=== PATIENT | male | born 1980 | race Caucasian/White ===

== ENCOUNTER 2018-05-01 00:04 | Emergency (ER) | payer MEDICAID, SELFPAY ==
[2018-05-01 00:06] VITALS: BP 109/77; PULSE 69; RESP 16; TEMP 36.6; O2SAT 98; BMI 22.8
--- NOTE | 2018-05-01 01:01 | ED.DCSUM_ITS ---
- ER Visit Summary Date of Service: 05/01/18 Chief Complaint: Right upper thigh lump History of Present Illness: The patient is a 38 M who presents with a lump at his right upper thigh. He noticed it earlier today but it seems to enlarge in size since that time. It is tender. No history of prior similar symptoms. Physical Examination: Afebrile vitals normal Moist mucous membranes Heart regular rate Respiratory distress There is a palpable mobile nodule in the right upper medial thigh distal to the groin no overlying erythema no fluctuance Test Results: Dcqjc-ki-rowh bedside soft tissue ultrasound shows a cystic structure that appears to be consistent with an enlarged lymph node. This is separate from the vasculature. Vessels are compressible. Emergency Department Course and Treatment: Ultrasound is most consistent with an enlarged lymph node. Patient was advised on supportive care such as anti- inflammatories. He was advised to follow-up with her primary care physician for further evaluation and formal ultrasound for further evaluation. Family states they will make an appointment with [facility] physicians. Patient discharged. Treatment Plan: [] Disposition: Discharge Impression: Enlarged lymph nodes/lymphadenopathy This note was generated with [employer] dictation software. It may contain incorrect words, spelling, and punctuation that were not noted in review of the chart prior to signing ED Disposition - Plan for ED Patient: Chief Complaint: Wound Referrals: Care Physician,No Primary [Primary Care Provider] -
--- NOTE | 2018-05-01 01:01 | ED.DEP ---
ED Disposition - Plan for ED Patient: Chief Complaint: Wound Referrals: Care Physician,No Primary [Primary Care Provider] - Additional Instructions: You were seen for a lump at your right thigh which appears to be an enlarged lymph node. Use Tylenol or ibuprofen for pain. Follow-up as an outpatient. Return for new or worsening symptoms.
[2018-05-01 01:13] VITALS: RESP 18
--- OUTSIDE RECORDS SUMMARY | 2018-06-26 00:25 | XMS RPT_ITS ---
:1980 Author Organization [facility] Care Team Providers Name Role Phone Jesus Kyle Attending Unavailable Jewel Garibay Referring Unavailable Jewel Garibay Primary Care Unavailable Lisandro Armando Attending Unavailable Primay Care Physicia, No Primary Care Unavailable PROBLEMS PROBLEMS DATE TYPE CONDITION / CODE ATTENDING STATUS SOURCE 05/04/2018 Active Other NA Active [facility] intra-abdominal Other [place] and pelvic Repository swelling, mass and lump / R19.09(ICD-10) PROCEDURES PROCEDURES No Procedure Records FoundRESULTS RESULTS ED PROV NOTE Observed: 05/04/2018 Status: COMPLETED Source: [place] 8:18 PM CLINIC OTHER CAMPUS REPOSITORY HNO ID: [id number] Author: George Yip (Pa) Service: (none) Author Type: Physician Building Trades Instructor Type: ED Provider Notes Filed: 05/06/2018 1:04 PM Note Text: ED Provider Note Patient Name: Bandar Bolton SERVICE DATE: 05/04/18 History Patient presents with: Abscess 38-year-old male presents emergency Department with complaints of tenderness and pain to his right thigh and groin. Suspects it may be an abscess. States there is slight erythema in the area but denies any drainage or induration. Denies any fever or chills. States he has some discomfort with movement but mostly with palpation in the area. Denies any other complaints at this time. History provided by: Patient technician support association used: No No past medical history on file. PAST SURGICAL HISTORY Procedure Laterality Date - HERNIA REPAIR HX - ORTHOPEDICS SURGERY HX 2015 left knee scraped and cleaned No family history on file. Social History Social History Main Topics - Smoking status: Current Some Day Smoker Packs/day: 1.00 Years: 15.00 Types: Cigarettes - Smokeless tobacco: Not on file - Alcohol use No - Drug use: No - Sexual activity: Not on file ALLERGIES Allergen Reactions - Penicillins Anaphylaxis Review of Systems Constitutional: Negative. Negative for chills and fever. HENT: Negative. Respiratory: Negative. Negative for cough. Cardiovascular: Negative. Negative for chest pain. Gastrointestinal: Negative. Genitourinary: Negative. Musculoskeletal: Negative. Negative for back pain and neck pain. Skin: Negative for rash and wound. Possible abscess to the right groin Neurological: Negative. Psychiatric/Behavioral: Negative. Physical Exam BP 128/71 Pulse 72 Temp (Src) 98 (Oral) Resp 18 SpO2 98% Physical Exam Constitutional: He is oriented to person, place, and time. He appears well-developed and well-nourished. No distress. HENT: Head: Atraumatic. Nose: Nose normal. Eyes: Pupils are equal, round, and reactive to light. EOM are normal. Neck: Normal range of motion. Cardiovascular: Normal rate, regular rhythm and normal heart sounds. Pulmonary/Chest: Effort normal and breath sounds normal. No respiratory distress. He has no wheezes. Musculoskeletal: Normal range of motion. Neurological: He is alert and oriented to person, place, and time. No cranial nerve deficit. Coordination normal. Skin: Skin is warm. Capillary refill takes less than 2 seconds. There is erythema. Smoking amount of erythema in the area depicted. Palpable mass. Less likely to be lymph node more likely to be early abscess. No drainage or induration. Psychiatric: He has a normal mood and affect. His behavior is normal. Judgment and thought content normal. Nursing note and vitals reviewed. Diagnostic Testing ED Labs Ordered and Reviewed - No data to display Procedures ED Course / Clinical Impression Clinical Impressions as of May 04 2253 Right groin mass MDM / Disposition / Plan MDM Clinical hemodynamically stable at time of discharge. Suspect there may be an abscess forming to the right thigh/groin. Seems a large to be a lymph node. Slight tenderness with erythema in the area. No induration however I do not believe size and drainage (unofficial. Patient has very had an ultrasound done which was negative for blood clot and will be started on antibiotic. Patient has a significant allergy to penicillin so will be started on Bactrim. Advised to return here if symptoms change or worsen and more importantly given contact information for primary care doctor to follow up with. The patient was DISCHARGED: Counseled patient regarding suspected diagnosis AND need for follow-up. Discharged home with verbal and written instructions. They were instructed to return as needed for persistent or worsening symptoms or any new concerns. Condition at time of disposition: stable SIGNATURE: NATANAEL Arredondo (Pa) 05/06/18 1304 ED NOTE Observed: 05/04/2018 Status: COMPLETED Source: [place] 8:18 PM [facility] REPOSITORY HNO ID: [id number] Author: Liliana Brunner RN Service: Nursing Author Type: Registered Nurse Type: ED Notes Filed: 05/07/2018 2:24 PM Note Text: Emergency Services: ED Call Back Questionnaire SERVICE DATE: 05/04/2018 Are you feeling better? Yes Any questions about discharge instructions and follow-up care? No Were you able to make a follow up appointment? Yes Do you have any further questions? No Is there anything that we could have done differently to improve your ED visit? No SIGNATURE: Liliana Brunner RN PATIENT NAME: Bandar Bolton DATE: May 07, 2018 TIME: 2:24 PM ED NOTE Observed: 05/04/2018 Status: COMPLETED Source: [place] 8:17 PM [facility] REPOSITORY HNO ID: [id number] Author: Merlyn WenRnTiti Wu RN Service: (none) Author Type: Registered Nurse Type: ED Notes Filed: 05/04/2018 8:17 PM Note Text: pt given d/c instructions and follow up care verbalized understanding. ED NOTE Observed: 05/04/2018 Status: COMPLETED Source: [place] 7:50 PM [facility] REPOSITORY HNO ID: [id number] Author: Merlyn Wu RN Service: (none) Author Type: Registered Nurse Type: ED Notes Filed: 05/04/2018 7:54 PM Note Text: PA in room to see pt ED NOTE Observed: 05/04/2018 Status: COMPLETED Source: [place] 5:57 PM CLINIC OTHER CAMPUS REPOSITORY HNO ID: [id number] Author: Zora (Rn) LE Choudhary Service: Nursing Author Type: Registered Nurse Type: ED Notes Filed: 05/04/2018 5:59 PM Note Text: Patient presents to ED with right thigh/groin abscess. PAtient states he first noticed last Friday and began to increase in size as the day went on. Was seen at [facility] and had US. Patient has had no improvement and abscess has continued to get bigger DISCHARGE INSTRUCTION Observed: 05/01/2018 Status: F Source: [place] 1:02 AM [facility] REPOSITORY [facility] Medical Records Department [address] [place] [address] Discharge Instruction 05/01/18100 MR#: [id number] Acct: [id number] Name: BANDAR BOLTON Rep #: [id number] : 1980 38 From: Lisandro Armando MD PCP: Care Physician, No Primary Status: PRE ER ED Disposition - Plan for ED Patient: Chief Complaint: Wound Referrals: Care Physician,No Primary [Primary Care Provider] - Additional Instructions: You were seen for a lump at your right thigh which appears to be an enlarged lymph node. Use Tylenol or ibuprofen for pain. Follow-up as an outpatient. Return for new or worsening symptoms. What to do if you have Problems For any increased pain, shortness of breath, bleeding, nausea or vomiting, chest pain, or any unexpected problems, contact your Primary Care Provider. Call [facility] ([phone]) or report to the closest Emergency Room. Call 911 if necessary. 05/01/18101 <Electronically signed by Lisnadro Armando MD> Date Lisandro Armando MD Cosigner Signature (If Indicated): Date CC: No Primary Care Physician; Jewel Garibay DO EMERGENCY DEPARTMENT Observed: 05/01/2018 Status: F Source: [place] SUMMARY 1:01 AM [facility] REPOSITORY [facility] Medical Records Department [address] [place] [address] Emergency Department Summary 05/01/18 0059 MR#: [id number] Acct: [id number] Name: BANDAR BOLTON Rep #: [id number] : 1980 38 From: Lisandro Armando MD PCP: Kaila Physician, No Primary Status: PRE ER - ER Visit Summary Date of Service: 05/01/18 Chief Complaint: Right upper thigh lump History of Present Illness: The patient is a 38 M who presents with a lump at his right upper thigh. He noticed it earlier today but it seems to enlarge in size since that time. It is tender. No history of prior similar symptoms. Physical Examination: Afebrile vitals normal Moist mucous membranes Heart regular rate Respiratory distress There is a palpable mobile nodule in the right upper medial thigh distal to the groin no overlying erythema no fluctuance Test Results: Hkpci-po-jxmp bedside soft tissue ultrasound shows a cystic structure that appears to be consistent with an enlarged lymph node. This is separate from the vasculature. Vessels are compressible. Emergency Department Course and Treatment: Ultrasound is most consistent with an enlarged lymph node. Patient was advised on supportive care such as anti- inflammatories. He was advised to follow-up with her primary care physician for further evaluation and formal ultrasound for further evaluation. Family states they will make an appointment with [facility] physicians. Patient discharged. Treatment Plan: [] Disposition: Discharge Impression: Enlarged lymph nodes/lymphadenopathy This note was generated with [employer] dictation software. It may contain incorrect words, spelling, and punctuation that were not noted in review of the chart prior to signing ED Disposition - Plan for ED Patient: Chief Complaint: Wound Referrals: Kaila Physician,No Primary [Primary Care Provider] - What to do if you have Problems For any increased pain, shortness of breath, bleeding, nausea or vomiting, chest pain, or any unexpected problems, contact your Primary Care Provider. Call [facility] ([phone]) or report to the closest Emergency Room. Call 911 if necessary. 05/01/18 0101 <Electronically signed by Lisandro Armando MD> Date Lisandro Armando MD Cosigner Signature (If Indicated): Date CC: No Primary Care Physician; Jewel Garibay DO ALLERGIES ALLERGIES DATE TYPE / NAME / CODE REACTION SEVERITY SOURCE CODE 05/01/2018 Drug Penicillins/F0010 Anaphylaxis Unknown [place] Allergy/41 59275(RXNORM) [facility] [id number]([facility] OMED CT) Repository 06/07/2011 Drug PENICILLINS ANAPHYLAXIS [facility] Class/4195 Other [place] [address](SN Repository ED CT) ENCOUNTERS ENCOUNTERS ADMIT/DISCHARGE ACCOUNT ADMITTING ENCOUNTER LOCATION SOURCE NUMBER CLASS 05/04/2018/05/04/20 [id number] Emergency [address] Other [place] Repository 05/01/2018/05/01/20 [id number] Emergency [address] ing:ED Repository 01/12/2018/01/13/20 [id number] Ambulatory BMSBuilding:B [address] Repository PAYERS PAYERS ENCOUNTER GUARANTOR PAYER SUBSCRIBER SOURCE 05/01/2018 BANDAR W Primary BANDAR W [place] [id number] Insurance:CARESOTAMARA ROJASB: [facility] Number: [id number] [id number] Repository [id number]: [phone]) Date:2018-05-01 O [phone] () [address]ATTN: [place] [address]KT: 05/01/2018 Secondary NOT GIVENUNK [place] Insurance:SELF PAY [facility] Number: Effective Repository Date:2018-05-01 01/12/2018 BANDAR [id number] Insurance:SELF PAY [address] Number: Effective Repository [id number]: [phone]) Date:2018-01-12 [phone] ()
== END 2018-05-01 01:14 | disposition home or self-care (01) ==
LOC: ED 01:09
PROVIDERS: Emergency Provider Emergency Medicine
DX: R59.9 Enlarged lymph nodes, unspecified (principal); Z72.0 Tobacco use
CPT/HCPCS: 99282